=== PATIENT | female | born 1990 | race African-American/Black ===

== ENCOUNTER 2018-12-01 06:08 | Inpatient (IN) ==
[2018-12-01] MEDS ORDERED: OXYTOCIN/LR 20 UNIT/1,000 ML BAG IV SCH (07:30)
[2018-12-01] MEDS ORDERED: LACTATED RINGERS 1,000 ML IV SCH (07:30)
[2018-12-01] MEDS ORDERED: ONDANSETRON 4 MG/2 ML VIAL IV PRN ×2 (07:30→17:11)
[2018-12-01 08:02] LABS: Basophils % 0.2 % (0.0-0.8); Eosinophils # 0.1 10*3/uL (0.0-0.87); Eosinophils % 0.9 % (0.00-10.9); Hematocrit 31.8 VOL% (35.7-47.0); Hemoglobin 9.7 GM/DL (12.0-16.0); Immature Granulocytes % 0.6 %; Immature Granulocytes Absolute 0.04 #; Lymphocytes # 1.7 10*3/uL (1.4-4.0); Lymphocytes % 25.1 % (21.3-54.2); Mean Corpuscular HGB Conc 30.5 GM/DL (32-36); Mean Corpuscular Volume 89.6 FL (87-102); Mean Platelet Volume 9.6 FL (9.6-12.0); Monocytes % 6.2 % (1.7-12.7); Platelet Count 285 T/CUMM (130-400); Red Blood Count 3.55 MC/CUMM (3.8-5.5); Red Cell Distribution Width 13.4 % (9.3-17.3); White Blood Count 6.7 T/CUMM (4-12)
[2018-12-01] MEDS ORDERED: CITRIC ACID/SODIUM CITRATE 30 ML UDCUP PO ONE (08:55)
[2018-12-01] MEDS ORDERED: FAMOTIDINE 20 MG/2 ML VIAL IV ONE (08:55)
[2018-12-01] MEDS ORDERED: NALOXONE 0.4 MG/ML VIAL IV PRN (08:55)
[2018-12-01] MEDS ORDERED: PROMETHAZINE 25 MG/1 ML VIAL IM ONE (08:55)
[2018-12-01] MEDS ORDERED: LACTATED RINGERS 1,000 ML IV ONE (08:55)
[2018-12-01] MEDS ORDERED: ePHEDrine 50 MG/ML AMP IV PRN (08:55)
[2018-12-01] MEDS ORDERED: diphenhydrAMINE 50 MG/1 ML VIAL IV PRN ×2 (08:55)
[2018-12-01] MEDS ORDERED: fentaNYL 2 MCG/ROPIV 0.2% EPID 100 ML EPIDURAL SCH (09:00)
[2018-12-01 10:35] LABS: Apearance,Urine CLEAR (Clear); Bilirubin,Urine Negative (Negative); Blood, Urine Small mg/dL (Negative); Glucose,Urine (UA) Negative (Negative); Ketones,Urine Negative (Negative); Mucus,Urine Occasional /LPF (Occasional); Nitrite,Urine Negative (Negative); Protein,Urine Negative; RBC,Urine <1 /HPF (0-4); Squamous Epithelial Cell,Urine Occasional /HPF (0-10); Urine Color Yellow (Yellow); Urine Specific Gravity 1.012 (1.001-1.035); Urine Urobilinogen < 2.0 EU/DL (0.2-1.0); WBC,Urine 1 /HPF (0-6)
[2018-12-01] MEDS ORDERED: OXYTOCIN/LR 0 UNIT/0 ML BAG IV ONE (14:19)
[2018-12-01] MEDS ORDERED: TRANEXAMIC ACID 1,000 MG/10 ML VIAL ONE (14:19)
[2018-12-01] MEDS ORDERED: miSOPROStol 200 MCG TABLET ONE (14:19)
[2018-12-01] MEDS ORDERED: METHYLERGONOVINE 0.2 MG/1 ML AMP ONE (14:20)
[2018-12-01] MEDS ORDERED: CARBOPROST TROMETHAMINE 250 MCG/ML AMP IM ONE (14:20)
[2018-12-01 14:52] LABS: Cord Venous Blood HCO3 21.4 MMOL/L; Cord Venous Blood PCO2 41.4 MMHG; Cord Venous Blood PO2 28.1
[2018-12-01] MEDS ORDERED: MEASLES/MUMPS/RUBELLA VACCINE 0.5 ML VIAL SUBCUT ONE (17:11)
[2018-12-01] MEDS ORDERED: RHO(D) IMMUNE GLOBULIN 300 MCG SYRINGE IM ONE (17:11)
[2018-12-01] MEDS ORDERED: LANOLIN 50% CREAM 0.3 OZ TUBE TOP PRN (17:11)
[2018-12-01] MEDS ORDERED: WITCH HAZEL PADS 100/JAR TOP PRN (17:11)
[2018-12-01] MEDS ORDERED: BISACODYL 10 MG SUPP RECTAL PRN (17:11)
[2018-12-01] MEDS ORDERED: DIPH/TET/ACEL PERT BOOSTER VACCINE 0.5 ML VIAL IM ONE (17:11)
[2018-12-01] MEDS ORDERED: HYDROCORTISONE 2.5% RECTAL CREAM 30 GM TUBE TOP PRN (17:11)
[2018-12-01] MEDS ORDERED: oxyCODONE/ACETAMINOPHEN 5-325 MG TABLET PO PRN ×2 (17:11)
[2018-12-01] MEDS ORDERED: ACETAMINOPHEN 325 MG TABLET PO PRN (17:11)
[2018-12-01] MEDS ORDERED: BENZOCAINE 20%/MENTHOL 0.5% SPRAY 56 GM CAN TOP PRN (17:11)
[2018-12-01] MEDS ORDERED: OXYTOCIN/LR 20 UNIT/1,000 ML BAG IV ONE (18:16)
[2018-12-01] MEDS: DOCUSATE SODIUM 100 MG CAPSULE PO SCH (20:42)
[2018-12-01] MEDS: IBUPROFEN 800 MG TABLET PO PRN (22:30)
[2018-12-02 05:32] LABS: Basophils % 0.2 % (0.0-0.8); Eosinophils # 0.1 10*3/uL (0.0-0.87); Eosinophils % 1.4 % (0.00-10.9); Hematocrit 32.5 VOL% (35.7-47.0); Immature Granulocytes % 0.7 %; Immature Granulocytes Absolute 0.06 #; Lymphocytes # 2.3 10*3/uL (1.4-4.0); Lymphocytes % 26.6 % (21.3-54.2); Mean Corpuscular HGB Conc 30.8 GM/DL (32-36); Mean Corpuscular Volume 89.5 FL (87-102); Monocytes % 8.4 % (1.7-12.7); Neutrophils % 62.7 % (38.7-73.9); Platelet Count 247 T/CUMM (130-400); Red Blood Count 3.63 MC/CUMM (3.8-5.5); Red Cell Distribution Width 13.2 % (9.3-17.3); White Blood Count 8.5 T/CUMM (4-12)
[2018-12-02] MEDS: DOCUSATE SODIUM 100 MG CAPSULE PO SCH ×2 (08:58→20:17)
[2018-12-02] MEDS: IBUPROFEN 800 MG TABLET PO PRN (20:17)
[2018-12-03 07:32] VITALS: BP 126/76
[2018-12-03] MEDS: DOCUSATE SODIUM 100 MG CAPSULE PO SCH (09:35)
== END 2018-12-03 13:30 | disposition home or self-care (01) | DRG 560 ==
LOC: N.LDOUT 06:08 → N.LD 06:10 → N.OB 16:58
PROVIDERS: ADMIT Obstetrics & Gynecology; ATTEND Obstetrics & Gynecology